=== PATIENT | male | born 1965 | race African-American/Black ===

== ENCOUNTER → 2019-10-25 15:09 | Outpatient (CLI) | payer OTHER, SELFPAY ==
--- NOTE | 2019-10-25 | XR_ITS ---
PROCEDURE: XR CHEST PORTABLE CLINICAL HISTORY: COVID TESTING; COUGH COMPARISON: CXR CHEST(2 VIEWS-NOT PORTABLE) from 12/16/2016 FINDINGS: No acute bony abnormalities. The cardiomediastinal silhouette and pulmonary vascularity are within normal limits. The lungs are somewhat hyperinflated, compatible with COPD. There is no demonstrated consolidation, acute vascular congestion or pleural effusion of the visualized lungs. IMPRESSION: No acute cardiopulmonary abnormality noted. Stable appearing chest. Dictated by: Susan Jett 10/25/2019 17:03 Electronically signed by Susan Jett in [place] 10/25/2019 17:03
[2019-10-25 21:47] LABS: Coronavirus 19 IgG Antibody Negative (Negative); Coronavirus 19 IgM Antibody Negative (Negative)
[2019-10-27 13:28] LABS: Covid-19 Nasal PCR Sendout Lex NOT DETECTED
== END ==
PROVIDERS: PCP Family Medicine; Visit Provider Family Medicine
DX: Z03.818 Encounter for observation for suspected exposure to other biological agents ruled out (principal)
CPT/HCPCS: 71045; 86328; U0004